=== PATIENT | female | born 1990 | race African-American/Black ===

== ENCOUNTER 2017-02-25 13:44 | Inpatient (IN) | payer MEDICAID ==
[~2017-02-25] VITALS: Ht 160 cm; Wt 97.3 kg
[~2017-02-25 13:44] MED LIST: AMOXICILLIN 50500 MG PO; FLAGYL500 MG PO; MOTRIN 800800 MG/TAB PO; NO HOME MEDICATIONS; PERCOCET 325 MG1 TA2 PO; PRENATAL1 TA1 PO
[2017-04-26] MEDS ORDERED: PRENATAL1 TA7 (18:35)
[2017-04-29] VITALS (45 sets, daily range): BP systolic 96–140; BP diastolic 46–84; PULSE 65–129; TEMP 98.4–98.8
[2017-04-29 11:12] LABS: BASO % 0.5 % (0.0-2.0); EOS # 0.3 (0.0-0.7); EOS % 3.4 % (0-4.0); GRAN # 5.5 (1.4-6.5); GRAN % 69.8 % (42.2-75.2); HEMATOCRIT 39.7 % (37.0-47.0); HEMOGLOBIN 13.3 g/dl (12.5-16.0); LYMPH # 1.5 (1.2-3.4); LYMPH % 18.8 % (20.0-51.0); MEAN CELL VOLUME 88 fl (80.0-100.0); MEAN CORPUSCULAR HEMOGLOBIN 30 pg (27.0-31.0); MEAN CORPUSCULAR HGB CONC 34 g/dl (33.0-37.0); MEAN PLATELET VOLUME 10.7 fl (7.4-10.4); MONO # 0.6 (0.1-0.6); MONO % 7.1 % (1.7-9.3); PLATELET COUNT 249 K/mm3 (130-400); RED BLOOD COUNT 4.49 M/mm3 (4.10-5.30); REDCELL DISTRIBUTION WIDTH-CV 12.2 % (11.5-14.5); WHITE BLOOD COUNT 7.9 K/mm3 (4.8-10.8)
[2017-04-30 04:30] VITALS: BP 99/58; PULSE 79; TEMP 98.1
[2017-04-30 08:35] VITALS: BP 114/59; PULSE 78; TEMP 97.9
[2017-04-30] MEDS ORDERED: IBU800 M1 PO (08:47)
[2017-04-30] MEDS ORDERED: SENOKOT S 50 MG1 TAB PO (08:47)
[2017-04-30] MEDS ORDERED: PERCOCET 325 MG1 TA2 PO (08:47)
[2017-04-30 12:15] VITALS: BP 110/50; PULSE 64; TEMP 98
[2017-04-30 16:20] VITALS: BP 102/50; PULSE 65; TEMP 98.2
== END 2017-04-30 21:30 | disposition home or self-care (01) | DRG 775 ==
LOC: LDRO → EDSTATUS 04-27 08:20 → LDRO 04-27 13:44 → OB 04-29 08:21 → LDR 04-29 10:29 → OB 04-29 22:30
PROVIDERS: Obstetrics & Gynecology
PROC: 10E0XZZ Delivery of Products of Conception, External Approach (ICD-10-PCS; principal; 2017-04-29)
PROC: 3E033VJ Introduction of Other Hormone into Peripheral Vein, Percutaneous Approach (ICD-10-PCS; 2017-04-29)
DX: O48.0 Post-term pregnancy (principal); O69.81X0 Labor and delivery complicated by cord around neck, without compression, not applicable or unspecified; Z3A.40 40 weeks gestation of pregnancy; Z37.0 Single live birth
CPT/HCPCS: J2590; J2795; J7120

== ENCOUNTER 2017-04-26 17:48 | Outpatient (CLI) | payer MEDICAID ==
[~2017-04-26] VITALS: Ht 160 cm; Wt 95.9 kg
[2017-04-26 18:35] VITALS: BP 119/77; PULSE 86; TEMP 99
[2017-04-26] MEDS ORDERED: PRENATAL1 TA7 (18:35)
== END 2017-04-26 18:47 ==
LOC: LDRO 17:48
DX: Z34.83 Encounter for supervision of other normal pregnancy, third trimester (principal); Z3A.39 39 weeks gestation of pregnancy